=== PATIENT | female | born 1975 | race Caucasian/White ===

== ENCOUNTER 2018-04-03 20:29 | Emergency (ER) | payer OTHER ==
[2016-05-22 09:29] VITALS: Wt 104.3 kg
[~2018-04-03 20:29] MED LIST: ADV100/50 INH; ATOR40TA24 PO; BIRTH CONTROL; BUPR-472 PO; CET10 PO; CETI10CA8 PO; CLON-1 PO; CLON0.5T66 PO; COM PO; DIABETIC MEDICATION; EFFEXOR; ESTR0.62 PO; ESTR1PAT4 TD; GEMF600T92 PO; HYDR-3078 PO; KET10 PO; METF-450 PO; MON10 PO; NIAC500T85 PO; NO ROUTINE MEDS; OXYC-489 PO; PANT40TA63 PO; PER PO; SER50 PO; SERT-1 PO; SERT-173 PO; SITA50TA6 PO; TAM4 PO; [UNRECOGNIZED DRUG - CODE] PO
[2018-04-03] MEDS ORDERED: PRED20TA6 PO (20:41)
[2018-04-03] MEDS ORDERED: LIRA0.6P3 SQ (20:41)
[2018-04-03] MEDS ORDERED: FAMOTIDINE 20 MG TAB PO ONE (21:00)
[2018-04-03] MEDS ORDERED: methylPREDNIS SUCC 125 MG/2ML IM ONE (21:00)
[2018-04-03] MEDS ORDERED: diphenhydrAMINE 25 MG CAP PO ONE (21:00)
[2018-04-03] MEDS ORDERED: methylPREDNIS SUCC 125 MG/2ML IVP ONE (21:05)
[2018-04-03] MEDS ORDERED: diphenhydrAMINE 50 MG/ML VIAL IVP ONE (21:05)
[2018-04-03] MEDS ORDERED: FAMOTIDINE(*) 20MG/50ML PREMIX 50 ML IVPB ONE (21:05)
[2018-04-03] MEDS ORDERED: NS(*) 0.9% 1000 ML BAG 1,000 ML IV ONE (21:05)
[2018-04-03 21:32] LABS: PLATELET COUNT, AUTOMATED 276 K/uL (150-450)
[2018-04-03] MEDS ORDERED: BETD15T TOP (22:11)
--- NOTE | 2018-04-03 22:11 | ER Report ---
History and Physical Time Seen By MD: 20:38 Hx. of Stated Complaint: PT HAS GENERALIZED RED ITCHY BUMPS ON ARMS/TORSO HPI/ROS CHIEF COMPLAINT: rash and itching HISTORY OF PRESENT ILLNESS: This is a 42 year old female. She has had an itchy rash on her arms and trunk. She has had this for several days now. Started after she got a new tattoo on her right upper arm. Also has been sick with an upper respiratory infection. She has had cough and sinus congestion and drainage. Has been placed on a Z-pack and is improving. She has a history of allergies, and takes Trang daily for this. No new soaps, detergents, chemicals. No new foods. Has been started on Prednisone 20mg tablets, two tablets daily for 5 days and just started this, and using over the counter topical cortisone cream, but not helping much. Allergies: Coded Allergies: Penicillins (Verified Allergy, Mild, 04/29/11) Home Meds Active Scripts Betamethasone Dip (BETAMETHASONE DIPROPIONATE) 15 Gm Cr, 15 GM TOP BID, #1 TUBE 0 Refills Prov:DONG AYERS MD 04/03/18 Reported Medications Prednisone (PREDNISONE) 20 Mg Tablet, 20 MG PO BID, TAB 04/03/18 Liraglutide (VICTOZA 2-YUNI) 0.6 Mg/0.1 Ml Pen.injctr, 0.6 MG SQ 04/03/18 Atorvastatin Calcium (LIPITOR) 40 Mg Tablet, 2 TAB PO QDAY, TAB 05/17/16 Estradiol (ESTRADIOL 0.1 MG) 1 Each Patch.tdwk, 1 EACH TD TWICE WEEKLY, PATCH.WK 05/19/15 Sertraline Hcl (ZOLOFT) 50 Mg Tablet, 3 TAB PO QDAY, TAB 05/19/15 Clonazepam (KLONOPIN) 0.5 Mg Tablet, 0.25 MG PO BID PRN for ANXIETY, #10 TAB TAKE ONE TABLET BY MOUTH TWICE A DAY PRN 01/13/14 Cetirizine Hcl (ZYRTEC) 10 Mg Capsule, 10 MG PO QDAY, CAPSULE TAKE 1 CAPSULE DAILY. 01/13/14 Bupropion Hcl (WELLBUTRIN XL) 150 Mg Tab.er.24h, 150 MG PO QDAY, TAB TAKE 1 TABLET BY MOUTH EVERY DAY 01/13/14 Discontinued Reported Medications [Diabetic Medication] No Conflict Check 05/17/16 Sitagliptin Phosphate (JANUVIA) 50 Mg Tablet, 50 MG PO QDAY 05/19/15 Reviewed Nurses Notes: Yes Hx Smoking: Yes (1/2 PPD FOR 30 YEARS) Smoking Status: Current: Every Day Smoker, Heavy Tobacco Smoker Hx Substance Use Disorder: Yes Hx Alcohol Use: Yes Constitutional Vital Sign - Last 24 Hours 04/03/18 04/03/18 04/03/18 04/03/18 20:29 20:34 20:34 20:44 Temp 98.6 Pulse ??? 111 113 Resp 16 B/P (MAP) 135/105 135/105 (115) Pulse Ox 92 92 O2 Delivery Room Air 04/03/18 04/03/18 04/03/18 04/03/18 20:59 21:14 21:22 21:29 Pulse 110 98 95 B/P (MAP) 123/72 (89) Pulse Ox 93 93 93 04/03/18 04/03/18 04/03/18 04/03/18 21:30 21:44 21:59 22:00 Pulse 91 96 B/P (MAP) 124/81 (95) 118/69 (85) Pulse Ox 93 93 04/03/18 04/03/18 22:14 22:14 Pulse 85 ??? Resp 16 B/P (MAP) 118/72 (87) Pulse Ox 92 O2 Delivery Room Air Intake and Output 04/03/18 04/03/18 04/04/18 15:00 23:00 07:00 Intake Total 550 ml Balance 550 ml Physical Exam General Appearance: Alert, no acute distress. Eyes: Pupils equal and round no injection. ENT: Normal oral mucosa. Moist mucous membranes. No mucous membrane lesions. Neck: Neck is supple and non tender. Respiratory: Breathing easily, clear to auscultation. Cardiac: regular rate and rhythm Musculoskeletal: Extremities have full range of motion. Skin: red spotty rash, maculopapular, blanching. No skin breakdown, blisters, or vesicles. DIFFERENTIAL DIAGNOSIS: After history and physical exam differential diagnosis was considered for rash that appears to be an allergic reaction, although cause uncertain. Medical Decision Making Data Points Result Diagram: 04/03/18211904/03/182119 Laboratory Hematology Test 04/03/18 21:20 Red Blood Count 5.16 M/uL (4.17-5.56) Mean Corpuscular Volume 89.1 fL (80.0-96.0) Mean Corpuscular Hemoglobin 30.6 pg (26.0-33.0) Mean Corpuscular Hemoglobin Concent 34.4 g/dL (32.0-36.0) Red Cell Distribution Width 13.4 % (11.5-14.5) Mean Platelet Volume 9.7 fL (7.2-11.1) Neutrophils (%) (Auto) 87.3 % (39.4-72.5) Lymphocytes (%) (Auto) 8.6 % (17.6-49.6) Monocytes (%) (Auto) 2.7 % (4.1-12.4) Eosinophils (%) (Auto) 0.2 % (0.4-6.7) Basophils (%) (Auto) 1.2 % (0.3-1.4) Nucleated RBC Relative Count (auto) 0.2 /100WBC Neutrophils # (Auto) 11.8 K/uL (2.0-7.4) Lymphocytes # (Auto) 1.2 K/uL (1.3-3.6) Monocytes # (Auto) 0.4 K/uL (0.3-1.0) Eosinophils # (Auto) 0.0 K/uL (0.0-0.5) Basophils # (Auto) 0.2 K/uL (0.0-0.1) Nucleated RBC Absolute Count (auto) 0.02 K/uL Erythrocyte Sedimentation Rate 22 mm/HOUR (0-20) Sodium Level 137 mmol/L (137-145) Potassium Level 4.4 mmol/L (3.5-5.0) Chloride Level 102 mmol/L (98-107) Carbon Dioxide Level 23 mmol/L (22-31) Blood Urea Nitrogen 17 mg/dl (7-18) Creatinine 0.80 mg/dl (0.52-1.04) Glomerular Filtration Rate Calc > 60.0 Random Glucose 346 mg/dl (75-110) Calcium Level 9.4 mg/dl (8.4-10.2) Total Bilirubin 1.0 mg/dl (0.2-1.3) Aspartate Amino Transf (AST/SGOT) 27 U/L (0-35) Alanine Aminotransferase (ALT/SGPT) 41 U/L (0-56) Alkaline Phosphatase 81 U/L (0-126) C-Reactive Protein < 0.5 mg/dl (<1.0) Total Protein 7.7 g/dl (6.3-8.2) Albumin 4.4 g/dl (3.5-5.0) Chemistry Test 04/03/18 21:20 White Blood Count 13.5 k/uL (4.5-11.0) Red Blood Count 5.16 M/uL (4.17-5.56) Hemoglobin 15.8 g/dL (12.0-16.0) Hematocrit 45.9 % (34.0-47.0) Mean Corpuscular Volume 89.1 fL (80.0-96.0) Mean Corpuscular Hemoglobin 30.6 pg (26.0-33.0) Mean Corpuscular Hemoglobin Concent 34.4 g/dL (32.0-36.0) Red Cell Distribution Width 13.4 % (11.5-14.5) Platelet Count 276 K/uL (150-450) Mean Platelet Volume 9.7 fL (7.2-11.1) Neutrophils (%) (Auto) 87.3 % (39.4-72.5) Lymphocytes (%) (Auto) 8.6 % (17.6-49.6) Monocytes (%) (Auto) 2.7 % (4.1-12.4) Eosinophils (%) (Auto) 0.2 % (0.4-6.7) Basophils (%) (Auto) 1.2 % (0.3-1.4) Nucleated RBC Relative Count (auto) 0.2 /100WBC Neutrophils # (Auto) 11.8 K/uL (2.0-7.4) Lymphocytes # (Auto) 1.2 K/uL (1.3-3.6) Monocytes # (Auto) 0.4 K/uL (0.3-1.0) Eosinophils # (Auto) 0.0 K/uL (0.0-0.5) Basophils # (Auto) 0.2 K/uL (0.0-0.1) Nucleated RBC Absolute Count (auto) 0.02 K/uL Erythrocyte Sedimentation Rate 22 mm/HOUR (0-20) Glomerular Filtration Rate Calc > 60.0 Calcium Level 9.4 mg/dl (8.4-10.2) Total Bilirubin 1.0 mg/dl (0.2-1.3) Aspartate Amino Transf (AST/SGOT) 27 U/L (0-35) Alanine Aminotransferase (ALT/SGPT) 41 U/L (0-56) Alkaline Phosphatase 81 U/L (0-126) C-Reactive Protein < 0.5 mg/dl (<1.0) Total Protein 7.7 g/dl (6.3-8.2) Albumin 4.4 g/dl (3.5-5.0) ED Course/Re-evaluation ED Course IV started and labs obtained. Has mild increase in ESR. Improved with Solu- Medrol, Pepcid and Benadryl, although not completely. Causes could be the tattoo, or the upper respiratory infection. Will continue the Prednisone, add Benadryl and Pepcid and give this some time. Follow-up with dermatology if not improving. Decision to Disposition Date: Apr 03, 2018 Decision to Disposition Time: 22:08 Depart Departure Latest Vital Signs Vital Signs Date Time Temp Pulse Resp B/P (MAP) Pulse Ox O2 Delivery O2 Flow Rate FiO2 04/03/18 22:14 ??? 04/03/18 22:14 16 118/72 (87) 92 Room Air 04/03/18 20:34 98.6 Impression: Primary Impression: Pruritic erythematous rash Condition: Improved Disposition: HOME OR SELF-CARE Referrals: MK ROGEL MD (PCP) New Scripts Betamethasone Dip (BETAMETHASONE DIPROPIONATE) 15 Gm Cr 15 GM TOP BID, #1 TUBE 0 Refills Prov: DONG AYERS MD 04/03/18 Patient Instructions: Acute Rash (ED) Additional Instructions: Benadryl 25mg over the counter tablets, take 2 tablets every 6 hours as needed for rash and itching. Pepcid 20mg over the counter tablets, take 1 every 12 hours. Keep taking your Trang. Finish the Prednisone prescribed earlier. Consider follow-up with a [employer] if not improving. Use Betamethasone Dipropionate cream twice a day for severe itching. DONG AYERS MD Apr 03, 2018 22:11
[2018-04-03 22:14] VITALS: BP 118/72
== END 2018-04-03 22:27 | disposition home or self-care (01) ==
LOC: ER 20:49
DX: F17.210 Nicotine dependence, cigarettes, uncomplicated (principal); L29.9 Pruritus, unspecified
CPT/HCPCS: 85025; 85651; 86140; 96361; 96365; 96375; 99284; J1200; J2930; J3490; J7030; 82040; 82247; 82310; 82374; 82435; 82565; 82947; 84075; 84132; 84155; 84295; 84450; 84460; 84520